=== PATIENT | female | born 1990 | race African-American/Black ===

== ENCOUNTER 2018-03-01 13:29 | Emergency (ER) | payer MEDICAID ==
[~2018-03-01] VITALS: Ht 182.9 cm; Wt 61.0 kg
[2018-03-01 13:38] VITALS: BP 125/87
[2018-03-01] MEDS ORDERED: ACETAMINOPHEN 325MG TABLET PO ONE (14:30)
== END 2018-03-01 15:57 | disposition home or self-care (01) ==
LOC: ER 13:29
DX: S61.411A Laceration without foreign body of right hand, initial encounter (principal); I10 Essential (primary) hypertension; J45.909 Unspecified asthma, uncomplicated; W22.8XXA Striking against or struck by other objects, initial encounter; Y93.89 Activity, other specified; Y92.018 Other place in single-family (private) house as the place of occurrence of the external cause
CPT/HCPCS: 73130; 99283

== ENCOUNTER 2018-04-07 13:20 | Emergency (ER) | payer MEDICAID, OTHER ==
[~2018-04-07] VITALS: Ht 182.9 cm; Wt 64.0 kg
[2018-04-07 13:37] VITALS: BP 122/78
== END 2018-04-07 17:16 | disposition left against medical advice (07) ==
LOC: ER 14:57
DX: Z53.21 Procedure and treatment not carried out due to patient leaving prior to being seen by health care provider (principal)

== ENCOUNTER 2018-05-18 15:14 | Emergency (ER) | payer MEDICAID, OTHER | END 2018-05-18 19:16 | disposition left against medical advice (07) | LOC: ER 15:14 | DX: M25.529 Pain in unspecified elbow (principal); Z53.21 Procedure and treatment not carried out due to patient leaving prior to being seen by health care provider ==

== ENCOUNTER 2018-06-06 22:46 | Emergency (ER) | payer OTHER ==
[~2018-06-06] VITALS: Ht 182.9 cm; Wt 65.0 kg
[2018-06-06 23:11] VITALS: BP 143/90
== END 2018-06-06 23:02 | disposition left against medical advice (07) ==
LOC: ER 22:46
DX: Z53.21 Procedure and treatment not carried out due to patient leaving prior to being seen by health care provider (principal)